=== PATIENT | female | born 1935 | race Caucasian/White ===

== ENCOUNTER 2017-10-13 17:42 | Inpatient (IN) ==
--- NOTE | 2017-10-13 18:03 | Emergency Department Note ---
Disposition Clinical Impression: Junctional bradycardia, Leg edema CHF (congestive heart failure) Qualifiers: Heart failure type: unspecified Heart failure chronicity: acute Qualified Code( s): I50.9 - Heart failure, unspecified Disposition: Admitted As Inpatient Condition: Fair Forms: ED Satisfaction Letter Time of Disposition: 20:11 SOB HPI - General Chief Complaint: ED Shortness of Breath/Dyspnea Stated Complaint: Fluid retention from Dr. Diamond Time Seen by Provider: 10/13/17 17:59 Source: patient Mode of arrival: ambulatory Limitations: no limitations Nursing Notes Reviewed: Yes Vital Signs Reviewed: Yes - History of Present Illness 1-year-old comes in with increasing shortness of breath and was seen by cardiology today patient had a BMP done with 875 level. They report a chest x- ray was done with congestive heart failure. Pt Subjective Complaint: shortness of breath Onset (ago): day(s) Severity: moderate Improves with: nothing Known history of: congestive heart failure Treatment prior to arrival: none Cough present: No - Related Data Home Medications Medication Instructions Recorded Confirmed Acetaminophen [Tylenol] 650 mg PO Q4HR PRN 10/13/17 10/13/17 Baclofen [Lioresal] 5 mg PO TID 10/13/17 10/13/17 Calcium Carbonate [Calcium] 600 mg PO BID 10/13/17 10/13/17 Cetirizine HCl [All Day Allergy] 10 mg PO DAILY 10/13/17 10/13/17 Cholecalciferol (D-3) [Vitamin D] 1,000 mg PO DAILY 10/13/17 10/13/17 Diltiazem CD (24hr) [Cardizem CD] 240 mg PO DAILY 10/13/17 10/13/17 Esomeprazole Magnesium [Nexium] 40 mg PO DAILY 10/13/17 10/13/17 FLUoxetine HCl [Prozac] 40 mg PO DAILY 10/13/17 10/13/17 Furosemide [Lasix] 40 mg PO BID 10/13/17 10/13/17 Gabapentin [Neurontin] 300 mg PO TID 10/13/17 10/13/17 GlipiZIDE XL (24 HR) [Glucotrol XL] 2.5 mg PO DAILY 10/13/17 10/13/17 Lisinopril [Zestril] 40 mg PO DAILY 10/13/17 10/13/17 Magnesium Oxide [Magnesium] 400 mg PO DAILY 10/13/17 10/13/17 Multivitamin [One Daily Essential] 1 tab PO DAILY 10/13/17 10/13/17 Potassium Chloride [Klor-Con 10] 10 meq PO BID 10/13/17 10/13/17 Pramipexole Di-HCl [Pramipexole 0.5 mg PO HS 10/13/17 10/13/17 Dihydrochloride] Pravastatin Sodium [Pravachol] 40 mg PO HS 10/13/17 10/13/17 Rivaroxaban [Xarelto] 15 mg PO DAILY 10/13/17 10/13/17 Sitagliptin Phosphate [Januvia] 50 mg PO DAILY 10/13/17 10/13/17 Allergies Allergy/AdvReac Type Severity Reaction Status Date / Time adhesive tape Allergy Rash Verified 10/13/17 19:51 Sulfa (Sulfonamide Allergy Rash Verified 10/13/17 19:51 Antibiotics) All systems ED: reviewed and negative except as stated. Constitutional: Denies: fever, chills, weakness, weight change Eyes: Denies: eye pain, eye discharge, vision change ENT ED: Denies: ear pain, throat pain, dental pain, hearing loss, epistaxis, congestion, dysphagia Cardiovascular: Reports: edema. Denies: chest pain, palpitations, dyspnea on exertion, syncope Respiratory: Denies: cough, dyspnea, wheezes, hemoptysis, stridor Gastrointestinal: Denies: abdominal pain, nausea, vomiting, diarrhea, constipation, hematemesis, melena, hematochezia Genitourinary: Denies: dysuria, frequency, hematuria, discharge Musculoskeletal: Denies: back pain, neck pain, arthralgia, myalgia Integumentary: Denies: rash, abrasion, lesions Neurological: Denies: headache, weakness, numbness, paresthesias, confusion, abnormal gait, vertigo Psychiatric: Denies: anxiety, depression, suicidal thoughts, homicidal thoughts , auditory hallucinations, visual hallucinations Endocrine: Denies: fatigue Hematological/Lymphatic: Denies: easy bleeding, easy bruising Allergic/Immunologic: Denies: facial swelling, urticaria Past Medical History - Past Medical History Medical history: Reports: non-contributory Psychiatric history: Reports: no psych history - Social History Smoking Status: Never smoker Smokeless Tobacco Status: No Alcohol use: Reports: none Drug use: Reports: none Physical Exam - General Limitations: no limitations General appearance: alert, in no apparent distress - Head Head exam: atraumatic, normocephalic, normal inspection - Eye Eye exam: Present: normal appearance, PERRL, EOMI - ENT ENT exam: normal exam, normal oropharynx, mucous membranes moist - Neck Neck exam: Present: normal inspection, full ROM, trachea midline - Chest Chest inspection: Present: normal inspection, symmetric chest wall rise - Respiratory Respiratory exam: Present: other (Rales) - Cardiovascular Cardiovascular exam: Present: regular rate, normal rhythm, normal heart sounds - Abdominal Exam Abdominal exam: Present: soft, Non-Tender. Absent: tenderness, distention, guarding, rebound, rigidity - Expanded Lower Extremity Exam Neurovascular/Tendon exam: Absent: motor deficit, sensory deficit, tendon deficit - Back Exam Back exam: Present: normal inspection, full ROM. Absent: tenderness - Neurological Exam Neurological exam: Present: alert, oriented X3 - Psychiatric Psychiatric exam: Present: normal affect, normal mood - Skin Skin exam: Present: warm, dry, intact, normal color Course - Reevaluation(s) Time: 20:10 - Consultations Consultation #1: Discussed with Gregory Coello cardiology he will see the patient in consult. Time: 20:10 Consultation #2: Discussed with , he will admit. Time: 20:10 Vital Signs Temperature 98.0 F 10/13/17 17:56 Pulse Rate 49 10/13/17 17:56 Respiratory Rate 18 10/13/17 17:56 Blood Pressure 134/46 10/13/17 17:56 O2 Sat by Pulse Oximetry 94 10/13/17 17:56 Temperature 98.0 F 10/13/17 17:56 Pulse Rate 48 10/13/17 19:49 Respiratory Rate 16 10/13/17 19:49 Blood Pressure 124/63 10/13/17 19:49 O2 Sat by Pulse Oximetry 93 10/13/17 19:49 Oxygen Delivery Oxygen Delivery Room Air Shortness of Breath/Dyspnea - Lab Data Result diagrams: 10/13/17 18:30 10/13/17 18:30 Lab Results 10/13/17 10/13/17 10/13/17 Range/Units 18:30 18:30 18:30 WBC 8.9 (4.3-11.1) K/mcL RBC 3.19 L (3.82-4.97) M/mcL Hgb 10.6 L (11.5-15.4) g/dL Hct 32.8 L (35.3-44.9) % MCV 102.8 H (83.0-100.0) fL MCH 33.2 (28.0-33.3) pg MCHC 32.3 (31.6-35.5) g/dL RDW 12.8 (11.5-14.5) % Plt Count 275 (140-400) K/mcL MPV 9.3 L (9.4-12.4) fL Immature Gran % 0.3 (0-4) % Seg Neutrophils % 65.7 % Lymphocytes % 18.1 % Monocytes % 8.7 % Eosinophils % 6.4 % Basophils % 0.8 % Neutrophils # 5.9 (1.6-8.9) K/mcL Lymphocytes # 1.6 (0.6-4.6) K/mcL Monocytes # 0.8 (0.0-1.3) K/mcL Eosinophils # 0.6 (0.0-0.6) K/mcL Basophils # 0.1 (0.0-0.2) K/mcL Sodium 136 (136-145) mEq/L Potassium 5.3 H (3.5-5.1) mEq/L Chloride 100 (98-107) mEq/L Carbon Dioxide 27 (23-29) mEq/L BUN 37 H (8-23) mg/dL Creatinine 1.91 H (0.60-1.20) mg/dL Est GFR ( Amer) 31 L (> 60) Est GFR (Non-Af Amer) 25 L (> 60) BUN/Creatinine Ratio 19 (6-26) Glucose 160 H (70-105) mg/dL Calculated Osmolality 294 (280-300) Lactic Acid (0.5-2.2) mmol/L Calcium 9.4 (8.6-10.3) mg/dL Troponin I 0.05 H* (< 0.04) ng/mL B-Natriuretic Peptide 659 H (Less than 100) pg/mL 10/13/17 Range/Units 18:50 WBC (4.3-11.1) K/mcL RBC (3.82-4.97) M/mcL Hgb (11.5-15.4) g/dL Hct (35.3-44.9) % MCV (83.0-100.0) fL MCH (28.0-33.3) pg MCHC (31.6-35.5) g/dL RDW (11.5-14.5) % Plt Count (140-400) K/mcL MPV (9.4-12.4) fL Immature Gran % (0-4) % Seg Neutrophils % % Lymphocytes % % Monocytes % % Eosinophils % % Basophils % % Neutrophils # (1.6-8.9) K/mcL Lymphocytes # (0.6-4.6) K/mcL Monocytes # (0.0-1.3) K/mcL Eosinophils # (0.0-0.6) K/mcL Basophils # (0.0-0.2) K/mcL Sodium (136-145) mEq/L Potassium (3.5-5.1) mEq/L Chloride (98-107) mEq/L Carbon Dioxide (23-29) mEq/L BUN (8-23) mg/dL Creatinine (0.60-1.20) mg/dL Est GFR ( Amer) (> 60) Est GFR (Non-Af Amer) (> 60) BUN/Creatinine Ratio (6-26) Glucose (70-105) mg/dL Calculated Osmolality (280-300) Lactic Acid 2.3 H (0.5-2.2) mmol/L Calcium (8.6-10.3) mg/dL Troponin I (< 0.04) ng/mL B-Natriuretic Peptide (Less than 100) pg/mL - EKG Data EKG attestation: Yes I reviewed and interpreted this EKG. EKG results narrative: Junctional bradycardia Rate: Reports: bradycardia Interpretation: Reports: other (Junctional bradycardia)
[2017-10-13 18:42] LABS: Basophils # 0.1 K/mcL (0.0-0.2); Basophils % 0.8 %; Eosinophils # 0.6 K/mcL (0.0-0.6); Eosinophils % 6.4 %; Hematocrit 32.8 % (35.3-44.9); Hemoglobin 10.6 g/dL (11.5-15.4); Immature Granulocytes % 0.3 % (0-4); Lymphocytes # 1.6 K/mcL (0.6-4.6); Lymphocytes % 18.1 %; Mean Corpuscular HGB Conc 32.3 g/dL (31.6-35.5); Mean Corpuscular Hemoglobin 33.2 pg (28.0-33.3); Mean Corpuscular Volume 102.8 fL (83.0-100.0); Mean Platelet Volume 9.3 fL (9.4-12.4); Monocytes # 0.8 K/mcL (0.0-1.3); Monocytes % 8.7 %; Neutrophils # 5.9 K/mcL (1.6-8.9); Platelet Count 275 K/mcL (140-400); Red Blood Count 3.19 M/mcL (3.82-4.97); Red Cell Distribution Width 12.8 % (11.5-14.5); Segmented Neutrophils % 65.7 %
[2017-10-13 19:09] LABS: Calcium 9.4 mg/dL (8.6-10.3); Potassium 5.3 mEq/L (3.5-5.1); Troponin I 0.05 ng/mL (< 0.04)
[2017-10-13] MEDS ORDERED: Furosemide 40 MG/4 ML VIAL IVP ONE (19:36)
[2017-10-13] MEDS ORDERED: Naloxone 0.4 MG/ML INJ IVP PRN (20:53)
[2017-10-13] MEDS ORDERED: Gabapentin 300 MG CAPSULE PO SCH (21:00)
--- NOTE | 2017-10-13 22:11 | Event Note ---
Date of Encounter: 10/14/17 Time of Encounter: 22:11 I examined this patient on 10/13/2017 independently as well as with the residents. Please see history and physical.
[2017-10-13] MEDS ORDERED: Furosemide 40 MG/4 ML VIAL IVP SCH (23:00)
[2017-10-13] MEDS: Baclofen 10 MG TABLET PO SCH (23:10)
--- NOTE | 2017-10-13 23:15 | Internal Med History&Physical ---
<Abraham Martinez - Last Filed: 10/13/17 23:41> Date of Encounter: 10/13/17 Time of Encounter: 21:00 Internal Medicine - H&P: HPI Chief complaint: SOB, bilateral leg swelling Admitted From: Emergency Dept Plans for Post Hospital Care: Home History of present illness: Ms. Moncada is a 81 year old female with PMHx Atrial fibrillation on Xeralto, hypertension, diabetes, neuropathy presents with worsening shortness of breath and bilateral lower extremity edema. Her PCP recently increased her Lasix from 40mg to 80mg due to worsening leg swelling 2 weeks ago. She reports that the increased dose has not helped with her water retention. Today, she went to outpatient cardiology and EKG demonstrated junctional bradycardia in the setting of newly diagnosed CHF. She was advised to come to the emergency room for further work-up and management. The patient reports that she has gained 20lbs over the last 6 weeks. She also has worsening cough with white sputum. Denies chest pain, f/c/n/v, abdominal pain, diarrhea, or constipation. Denies smoking, alcohol, or illicit drug use. She denies history of admission for same issues. She lives by herself and reports missing meals several times a week. No further acute complaints. Past Med Surg Social Fam HX - Past Medical History Medical history: non-contributory Psychiatric history: no psych history - Social History Smoking Status: Never smoker Smokeless Tobacco Status: No Alcohol use: none Drug use: none Internal Medicine - H&P: Meds Acetaminophen [Tylenol] 650 mg PO Q4HR PRN 10/13/17 [History] Baclofen [Lioresal] 5 mg PO TID 10/13/17 [History] Calcium Carbonate [Calcium] 600 mg PO BID 10/13/17 [History] Cetirizine HCl [All Day Allergy] 10 mg PO DAILY 10/13/17 [History] Cholecalciferol (D-3) [Vitamin D] 1,000 mg PO DAILY 10/13/17 [History] Diltiazem CD (24hr) [Cardizem CD] 240 mg PO DAILY 10/13/17 [History] Esomeprazole Magnesium [Nexium] 40 mg PO DAILY 10/13/17 [History] FLUoxetine HCl [Prozac] 40 mg PO DAILY 10/13/17 [History] Furosemide [Lasix] 40 mg PO BID 10/13/17 [History] Gabapentin [Neurontin] 300 mg PO TID 10/13/17 [History] GlipiZIDE XL (24 HR) [Glucotrol XL] 2.5 mg PO DAILY 10/13/17 [History] Lisinopril [Zestril] 40 mg PO DAILY 10/13/17 [History] Magnesium Oxide [Magnesium] 400 mg PO DAILY 10/13/17 [History] Multivitamin [One Daily Essential] 1 tab PO DAILY 10/13/17 [History] Potassium Chloride [Klor-Con 10] 10 meq PO BID 10/13/17 [History] Pramipexole Di-HCl [Pramipexole Dihydrochloride] 0.5 mg PO HS 10/13/17 [History] Pravastatin Sodium [Pravachol] 40 mg PO HS 10/13/17 [History] Rivaroxaban [Xarelto] 15 mg PO DAILY 10/13/17 [History] Sitagliptin Phosphate [Januvia] 50 mg PO DAILY 10/13/17 [History] 3 Allergy/AdvReac Type Severity Reaction Status Date / Time adhesive tape Allergy Rash Verified 10/13/17 19:51 Sulfa (Sulfonamide Allergy Rash Verified 10/13/17 19:51 Antibiotics) All Systems PM: A 10-system review of systems was performed and is negative for pertinent findings except as documented above in the HPI. - Constitutional Constitutional: fatigue, falls, no chills, no fever(s), no night sweats - EENT Eyes: no change in vision, no discharge, no loss of vision, no pain, no photophobia Ears: no ear discharge, no ear pain, no tinnitus Nose, mouth and throat: no dysphagia, no nasal discharge, no neck pain, no sore throat - Cardiovascular Cardiovascular ROS IM: no chest pain, no diaphoresis, no dyspnea, no lightheadedness, no palpitations, no syncope - Respiratory Respiratory: cough, dyspnea, no wheezing, no pain on inspiration, no excessive phlegm production, no pain with cough - Gastrointestinal Gastrointestinal: no abdominal pain, no diarrhea, no hematemesis, no hematochezia, no melena, no nausea, no vomiting - Genitourinary Genitourinary: no change in urinary stream, no dysuria, no flank pain, no hematuria - Musculoskeletal Musculoskeletal ROS IM: no numbness, no tingling Additional comments: worsening bilateral lower extremity swelling with loss of sensation. - Integumentary Integumentary IM: no rash, no unusual bruising - Neurological Neurological ROS: focal weakness, no confusion, no convulsions, no numbness, no tremor(s) Additional comments: loss of sensation in bilateral lower extremities - Endocrine Endocrine IM: no polyuria - Hematologic/Lymphatic Hematologic/Lymphatic: no easy bruising - Constitutional Vitals: Temp Pulse Resp BP Pulse Ox 98.2 F 48 17 128/48 91 10/13/17 21:55 10/13/17 21:55 10/13/17 21:55 10/13/17 21:55 10/13/17 21:55 - Head Head exam: Present: atraumatic, normocephalic - Eye Eye exam: Present: EOMI, conjuntiva pink, sclera anicteric - Neck Neck exam general surgery: Present: supple, trachea midline. Absent: lymphadenopathy - Respiratory Respiratory exam: Present: CTAB. Absent: accessory muscle use, rales, rhonchi, wheezes - Cardiovascular Cardiovascular exam: Present: bradycardia, +S1, +S2. Absent: diastolic murmur, gallop, rubs, systolic murmur - GI/Abdominal GI/Abdominal exam: Present: normal bowel sounds, soft, no peritoneal signs. Absent: distended, tenderness - Extremities Exam Extremities exam: Present: pedal edema, warm. Absent: calf tenderness, cyanotic , tenderness Additional comments: bilateral 3+ pedal edema - Neurological Exam Neurological exam: Present: alert, oriented X3. Absent: pronater drift, facial droop, speech deficit - Skin Skin exam: Present: intact, mottled Internal Med - H&P Results - Labs CBC & Chem 7: 10/13/17 18:30 10/13/17 18:30 - Assessment and plan (1) Leg edema Current Visit: Yes Status: Acute Assessment and plan: likely secondary to CHF exacerbation. Treat per above. (2) Junctional bradycardia Current Visit: Yes Status: Acute Assessment and plan: Pending Cardiology eval and recommendations. (3) Hypertension Current Visit: No Status: Acute Assessment and plan: Stable. Continue with home medications. Qualifiers: Qualified Code(s): I10 - Essential (primary) hypertension (4) History of atrial fibrillation Current Visit: No Status: Acute Assessment and plan: Continue with Xarelto, diltiazem (5) Diabetes Current Visit: No Status: Acute Assessment and plan: Low dose SSI Qualifiers: Qualified Code(s): E11.9 - Type 2 diabetes mellitus without complications (6) DVT prophylaxis Current Visit: Yes Status: Acute Assessment and plan: Patient on Xeralto. (7) Acute exacerbation of CHF (congestive heart failure) Current Visit: Yes Status: Acute Assessment and plan: Patient reports worsening BL lower extremity edema and SOB despite increased dose of lasix. Admit to inpatient with cardiac monitoring CXR shows vascular congestion without acute airspace disease identified. Supplemental oxygen as needed Start IV lasix 40mg BID Monitor I/O closely and daily weight Consult Cardiology, pending echocardiogram Cardiac diet now Daily Magnesium and potassium with AM labs Qualifiers: Qualified Code(s): I50.9 - Heart failure, unspecified - Time Spent With Patient Total time spent is greater than 50% in coordination of care (as documented) at patient's floor/unit and/or counseling patient: Greater than 35 minutes <Dick Conti P - Last Filed: 10/14/17 10:58> Date of Encounter: 10/14/17 Internal Medicine - H&P: HPI History of present illness: Ms. Moncada is a 81 year old female All Systems PM: A 10-system review of systems was performed and is negative for pertinent findings except as documented above in the HPI. - Constitutional Vitals: Temp Pulse Resp BP Pulse Ox 98.9 F 70 17 149/61 90 10/14/17 07:45 10/14/17 07:45 10/14/17 07:45 10/14/17 07:45 10/14/17 07:45 Internal Med - H&P Results - Labs CBC & Chem 7: 10/14/17 00:35 10/14/17 00:35 Labs: Short CBC 10/14/17 Range/Units 00:35 WBC 8.9 (4.3-11.1) K/mcL Hgb 10.4 L (11.5-15.4) g/dL Hct 31.6 L (35.3-44.9) % Plt Count 272 (140-400) K/mcL Neutrophils # 5.0 (1.6-8.9) K/mcL BMP 10/14/17 00:35 Sodium 136 Potassium 5.0 Chloride 100 Carbon Dioxide 29 BUN 40 H Creatinine 1.91 H Glucose 105 Calcium 9.1 Cardiac Enzymes 10/14/17 10/14/17 Range/Units 00:35 06:11 Troponin I 0.05 H* 0.05 H* (< 0.04) ng/mL Liver Function 10/14/17 Range/Units 00:35 Total Bilirubin 0.4 (0.3-1.0) mg/dL AST 19 (13-39) Units/L ALT 12 (7-52) Units/L Alkaline Phosphatase 57 (34-104) Units/L Albumin 3.6 (3.5-5.7) g/dL - Attending Attestation I examined this patient and my medical decision-making was reviewed with the Resident Physician. I agree with the documented findings, disposition and treatment plan as described except to the extent set forth below. I agree with the assessment and plan. - Assessment and plan (1) Leg edema Current Visit: Yes Status: Acute (2) Junctional bradycardia Current Visit: Yes Status: Acute (3) Hypertension Current Visit: No Status: Acute Qualifiers: Qualified Code(s): I10 - Essential (primary) hypertension (4) History of atrial fibrillation Current Visit: No Status: Acute (5) Diabetes Current Visit: No Status: Acute Qualifiers: Qualified Code(s): E11.9 - Type 2 diabetes mellitus without complications (6) DVT prophylaxis Current Visit: Yes Status: Acute (7) Acute exacerbation of CHF (congestive heart failure) Current Visit: Yes Status: Acute Qualifiers: Heart failure type: unspecified Qualified Code(s): I50.9 - Heart failure, unspecified - Time Spent With Patient Total time spent is greater than 50% in coordination of care (as documented) at patient's floor/unit and/or counseling patient:
[2017-10-13] MEDS ORDERED: D5% in Water 1,000 ML IVC PRN (23:21)
[2017-10-13] MEDS ORDERED: Dextrose Gel 15 GM/37.5 ML TUBE PO PRN ×2 (23:21)
[2017-10-13] MEDS ORDERED: *HR* Dextrose 50 % in Water (Syg) 50 ML SYRINGE IVP PRN (23:21)
[2017-10-13] MEDS: Insulin LISPRO 300 UNITS/3 ML VIAL SQ SCH (23:40)
[2017-10-14 01:13] LABS: Basophils # 0.1 K/mcL (0.0-0.2); Basophils % 0.7 %; Eosinophils # 0.7 K/mcL (0.0-0.6); Eosinophils % 7.7 %; Hematocrit 31.6 % (35.3-44.9); Hemoglobin 10.4 g/dL (11.5-15.4); Immature Granulocytes % 0.2 % (0-4); Lymphocytes # 2.3 K/mcL (0.6-4.6); Lymphocytes % 25.5 %; Mean Corpuscular HGB Conc 32.9 g/dL (31.6-35.5); Mean Corpuscular Hemoglobin 33.9 pg (28.0-33.3); Mean Corpuscular Volume 102.9 fL (83.0-100.0); Mean Platelet Volume 9.5 fL (9.4-12.4); Monocytes # 0.9 K/mcL (0.0-1.3); Monocytes % 9.8 %; Platelet Count 272 K/mcL (140-400); Red Blood Count 3.07 M/mcL (3.82-4.97); Red Cell Distribution Width 12.9 % (11.5-14.5); Segmented Neutrophils % 56.1 %
[2017-10-14 01:31] LABS: Albumin 3.6 g/dL (3.5-5.7); Albumin/Globulin Ratio 1.6 (1.1-2.2); Bilirubin,Total 0.4 mg/dL (0.3-1.0); Calcium 9.1 mg/dL (8.6-10.3); Globulin 2.2 g/dL (2.4-3.5); Magnesium 2.2 mg/dL (1.6-2.6); Phosphorous 4.4 mg/dL (2.7-4.5); Total Protein 5.8 g/dL (6.4-8.9)
[2017-10-14] MEDS: FLUoxetine 20 MG CAPSULE PO SCH (08:53)
[2017-10-14] MEDS: Baclofen 10 MG TABLET PO SCH ×3 (08:53→20:40)
[2017-10-14] MEDS: Magnesium Oxide 400 MG TABLET PO SCH (08:53)
[2017-10-14] MEDS: Lisinopril 20 MG TABLET PO SCH (08:53)
[2017-10-14] MEDS: Gabapentin 100 MG CAPSULE PO SCH ×3 (08:53→20:40)
[2017-10-14] MEDS: *HR* Rivaroxaban 15 MG TABLET PO SCH (08:54)
[2017-10-14] MEDS: Cholecalciferol (D-3) 1,000 UNIT TABLET PO SCH (08:54)
[2017-10-14] MEDS: Furosemide 40 MG/4 ML VIAL IVP SCH ×2 (08:54→18:51)
[2017-10-14] MEDS: Loratadine 10 MG TABLET PO SCH (08:54)
[2017-10-14] MEDS: Multivit/Ca/Min/Fe/FA 1 TAB TABLET PO SCH (08:54)
[2017-10-14] MEDS: Insulin LISPRO 300 UNITS/3 ML VIAL SQ SCH ×4 (08:55→20:41)
[2017-10-14] MEDS ORDERED: Diltiazem CD (24hr) 240 MG CAPSULE PO SCH (09:00)
--- NOTE | 2017-10-14 09:19 | Cardiology Consult Note ---
Date of Encounter: 10/14/17 Time of Encounter: 09:14 Assessment and Plan (1) Acute exacerbation of CHF (congestive heart failure) Current Visit: Yes Status: Acute Acute CHF exacerbation. 20lb weight gain in past 6 weeks, worsening dyspnea and LE edema. Fluid overload on exam. CXR vascular congestion, BNP 793. TTE to determine type of CHF--systolic vs diastolic. Last TTE in 2013 showed preserved EF with moderate diastolic dysfunction. Agree with IV lasix 40mg BID. Monitor renal function closely. Recommend strict I/Os, Na and fluid restriction, daily weights. CHF teaching discussed. Pt admits to excess fluid intake. Continue to follow. Qualifiers: Heart failure type: unspecified Qualified Code(s): I50.9 - Heart failure, unspecified (2) PAF (paroxysmal atrial fibrillation) Current Visit: Yes Status: Acute Known hx of PAF, anticoagulated on Xarelto, renal dosing 15mg daily. Junctional bradycardia in office yesterday. AVG HR overnight 53, A-Fib. Pt is on Cardizem CD 240mg daily. Will decrease to 120mg daily. Historically unable to tolerate beta blockers due to causing significant bradycardia. Continue to monitor. (3) Elevated troponin Current Visit: Yes Status: Acute Troponins flat and adynamic--0.05 x 3 in setting of CHF exacerbation. Suspect demand ischemia, nondiagnostic for ACS. Discussion w patient/family: The assessment and plan as outlined above was discussed with the patient and/or family members who expressed understanding and agreement. All questions were answered. Thank you for involving us in the care of your patient. Please call with any questions. I will discuss all the above with Dr. Duran and make changes as necessary. History of Present Illness Consult date: 10/14/17 Consult reason: CHF Chief complaint: dyspnea, LE edema History of present illness: Ms. Moncada is a 81 year old female with PMH of PAF anticoagulated on Xarelto, HTN, HLD, DMII, CKD stage 3 that was seen as outpt in cardiology office yesterday and sent to ED for junctional bradycardia on EKG and CHF symptoms. Pt reports over recent weeks she has noticed worsening dyspnea and LE edema, reports 20lb weight gain in 6 weeks. She denies chest pain, dizziness, lightheadedness. BNP 793, CXR with vascular congestion. Cardiology consulted for further recommendations. Troponins 0.05 x 3. Prior CV testing: [facility] NUCLEAR STRESS TEST 10/06/13. Perfusion imaging was negative for ischemia or infarct. Gated EF = 73%. There is no evidence of TID. ECHO 05/22/14. Normal LV systolic function, LVEF 60-65%. Moderate left ventricular diastolic dysfunction. Normal right ventricular structure and function. Mildly dilated left atrium. Mild-moderate mitral regurgitation. No evidence of pulmonary hypertension. HOLTER MONITOR 06/09/14. Baseline rhythm normal sinus. Several episodes of atrial fibrillation/ flutter with RVR. Frequent PVCs and couplets. Two three beat runs NSVT. Past Med Surg Social Fam HX - Past Medical History Medical history: atrial fibrillation, diabetes, hyperlipidemia, hypertension Psychiatric history: no psych history - Social History Smoking Status: Never smoker Smokeless Tobacco Status: No Alcohol use: none Drug use: none Medications and Allergies Acetaminophen [Tylenol] 650 mg PO Q4HR PRN 10/13/17 [History] Baclofen [Lioresal] 5 mg PO TID 10/13/17 [History] Calcium Carbonate [Calcium] 600 mg PO BID 10/13/17 [History] Cetirizine HCl [All Day Allergy] 10 mg PO DAILY 10/13/17 [History] Cholecalciferol (D-3) [Vitamin D] 1,000 mg PO DAILY 10/13/17 [History] Diltiazem CD (24hr) [Cardizem CD] 240 mg PO DAILY 10/13/17 [History] Esomeprazole Magnesium [Nexium] 40 mg PO DAILY 10/13/17 [History] FLUoxetine HCl [Prozac] 40 mg PO DAILY 10/13/17 [History] Furosemide [Lasix] 40 mg PO BID 10/13/17 [History] Gabapentin [Neurontin] 300 mg PO TID 10/13/17 [History] GlipiZIDE XL (24 HR) [Glucotrol XL] 2.5 mg PO DAILY 10/13/17 [History] Lisinopril [Zestril] 40 mg PO DAILY 10/13/17 [History] Magnesium Oxide [Magnesium] 400 mg PO DAILY 10/13/17 [History] Multivitamin [One Daily Essential] 1 tab PO DAILY 10/13/17 [History] Potassium Chloride [Klor-Con 10] 10 meq PO BID 10/13/17 [History] Pramipexole Di-HCl [Pramipexole Dihydrochloride] 0.5 mg PO HS 10/13/17 [History] Pravastatin Sodium [Pravachol] 40 mg PO HS 10/13/17 [History] Rivaroxaban [Xarelto] 15 mg PO DAILY 10/13/17 [History] Sitagliptin Phosphate [Januvia] 50 mg PO DAILY 10/13/17 [History] 3 Allergy/AdvReac Type Severity Reaction Status Date / Time adhesive tape Allergy Rash Verified 10/13/17 19:51 Sulfa (Sulfonamide Allergy Rash Verified 10/13/17 19:51 Antibiotics) All Systems Review: The remainder of the systems were reviewed and are negative - Cardiovascular Cardiovascular: as per HPI, dyspnea at rest, dyspnea on exertion, leg edema - Respiratory Respiratory: dyspnea Physical Examination Vital Signs, Last 4 Hours Temp Pulse Resp BP Pulse Ox 10/14/17 07:45 98.9 F 70 17 149/61 90 Vital Signs Temp Pulse Resp BP Pulse Ox 10/14/17 07:45 98.9 F 70 17 149/61 90 10/14/17 03:50 97.9 F 52 17 139/47 90 10/13/17 23:43 98.1 F 50 16 121/51 92 10/13/17 21:55 98.2 F 48 17 128/48 91 10/13/17 21:54 98.2 F 48 17 128/48 91 10/13/17 20:38 49 16 139/46 93 10/13/17 19:49 48 16 124/63 93 10/13/17 19:09 47 18 125/53 93 10/13/17 17:56 98.0 F 49 18 134/46 94 Intake and Output 10/13/17 10/14/17 10/14/17 23:59 07:59 15:59 Intake Total 260 / 260 Output Total 400 / 400 750 / 750 Balance -400 / -400 -750 / -750 260 / 260 Intake: Oral 260 / 260 Output: Urine 400 / 400 750 / 750 Other: Meal Breakfast Percent of Meal Consumed 75% # Voids 1 Weight 78.834 kg 77.3 kg Blood Glucose* 130 120 Patient Weight 10/14/17 23:59 Weight 77.3 kg General: Conversant, No Apparent Distress HEENT: Atraumatic, Normocephaly, Mucus Membranes Moist Neck: No JVD, Normal carotid pulses Cardiac: Other (irregularly irregular) Lungs: Other (diminished) Neuro: Alert and responsive, No focal deficits noted Abdomen: Soft, Non-Tender Skin: No rashes noted on visualized skin Musculoskeletal: No Chest Wall Tenderness Extremities: No Clubbing, No Cyanosis, No Edema, Normal Pulses, Other (1+ BLE edema ) Results 10/14/17 00:35 10/14/17 00:35 Lab Results 10/14/17 10/14/17 10/14/17 00:35 00:35 00:35 WBC 8.9 Hgb 10.4 L Hct 31.6 L Plt Count 272 APTT 32.5 Sodium Potassium Chloride Carbon Dioxide BUN Creatinine Glucose Calcium Magnesium Total Bilirubin AST ALT Alkaline Phosphatase Troponin I 0.05 H* B-Natriuretic Peptide 10/14/17 10/14/17 10/14/17 00:35 00:35 06:11 WBC Hgb Hct Plt Count APTT Sodium 136 Potassium 5.0 Chloride 100 Carbon Dioxide 29 BUN 40 H Creatinine 1.91 H Glucose 105 Calcium 9.1 Magnesium 2.2 Total Bilirubin 0.4 AST 19 ALT 12 Alkaline Phosphatase 57 Troponin I 0.05 H* B-Natriuretic Peptide 793 H Short CBC 10/14/17 10/13/17 Range/Units 00:35 18:30 WBC 8.9 8.9 (4.3-11.1) K/mcL Hgb 10.4 L 10.6 L (11.5-15.4) g/dL Hct 31.6 L 32.8 L (35.3-44.9) % Plt Count 272 275 (140-400) K/mcL Neutrophils # 5.0 5.9 (1.6-8.9) K/mcL BMP 10/14/17 10/13/17 Range/Units 00:35 18:30 Sodium 136 136 (136-145) mEq/L Potassium 5.0 5.3 H (3.5-5.1) mEq/L Chloride 100 100 (98-107) mEq/L Carbon Dioxide 29 27 (23-29) mEq/L BUN 40 H 37 H (8-23) mg/dL Creatinine 1.91 H 1.91 H (0.60-1.20) mg/dL Glucose 105 160 H (70-105) mg/dL Calcium 9.1 9.4 (8.6-10.3) mg/dL Cardiac Enzymes 10/14/17 10/14/17 10/13/17 Range/Units 06:11 00:35 18:30 Troponin I 0.05 H* 0.05 H* 0.05 H* (< 0.04) ng/mL Liver Function 10/14/17 Range/Units 00:35 Total Bilirubin 0.4 (0.3-1.0) mg/dL AST 19 (13-39) Units/L ALT 12 (7-52) Units/L Alkaline Phosphatase 57 (34-104) Units/L Albumin 3.6 (3.5-5.7) g/dL Impressions Chest X-Ray 10/13/17 17:59 IMPRESSION: Vascular congestion without acute airspace disease identified. Cardiac silhouette enlargement is again demonstrated. D/ / Alan Gordon / Alan Gordon Interpreting Provider: Alan Gordon Active Medications Atorvastatin Calcium (Lipitor) 10 mg PO HS DILEEP Stop: 04/15/18 21:01 Baclofen (Lioresal) 5 mg PO TID DILEEP Stop: 04/14/18 21:01 Last Admin: 10/14/17 08:53 Dose: 5 mg Calcium Carbonate (Tums) 500 mg PO BID DILEEP Stop: 04/15/18 09:01 Last Admin: 10/14/17 08:54 Dose: 500 mg Dextrose/Water (Dextrose 50% (Syg)) 25 ml IVP AD PRN PRN Reason: Hypoglycemia Stop: 04/14/18 23:22 Diltiazem HCl (Cardizem Cd) 240 mg PO DAILY DILEEP Stop: 04/15/18 09:01 Last Admin: 10/14/17 08:53 Dose: 240 mg Fluoxetine HCl (Prozac) 40 mg PO DAILY DILEEP Stop: 04/15/18 09:01 Last Admin: 10/14/17 08:53 Dose: 40 mg Furosemide (Lasix) 40 mg IVP BIDDIURETIC DILEEP Stop: 04/15/18 08:01 Last Admin: 10/14/17 08:54 Dose: 40 mg Gabapentin (Neurontin) 200 mg PO TID DILEEP Stop: 04/15/18 09:01 Last Admin: 10/14/17 08:53 Dose: 200 mg Glucagon (Glucagen) 1 mg IM ONCE PRN PRN Reason: Hypoglycemia Stop: 04/14/18 23:22 Glucose (Gluctose) 15 gm PO ONCE PRN PRN Reason: Hypoglycemia Stop: 04/14/18 23:22 Glucose (Gluctose) 30 gm PO ONCE PRN PRN Reason: Hypoglycemia Stop: 04/14/18 23:22 Dextrose (Dextrose 5%) 1,000 mls @ 100 mls/hr IVC .Q10H PRN PRN Reason: HYPOGLYCEMIA Stop: 04/14/18 23:22 Insulin Human Lispro (Humalog) 0 units SQ TIDAC [facility] PRN Reason: Protocol Stop: 04/15/18 07:31 Last Admin: 10/14/17 08:55 Dose: Not Given Insulin Human Lispro (Humalog) 0 units SQ HS [facility] PRN Reason: Protocol Stop: 04/14/18 23:31 Last Admin: 10/13/17 23:40 Dose: Not Given Lisinopril (Zestril) 40 mg PO DAILY [facility] Stop: 04/15/18 09:01 Last Admin: 10/14/17 08:53 Dose: 40 mg Loratadine (Claritin) 10 mg PO DAILY DILEEP Stop: 04/15/18 09:01 Last Admin: 10/14/17 08:54 Dose: 10 mg Magnesium Oxide (Mag-Ox) 400 mg PO DAILY [facility] PRN Reason: Protocol Stop: 04/15/18 09:01 Last Admin: 10/14/17 08:53 Dose: 400 mg Multivitamins/Calcium (Thera M Plus) 1 tab PO DAILY [facility] Stop: 04/15/18 09:01 Last Admin: 10/14/17 08:54 Dose: 1 tab Naloxone HCl (Narcan) 0.4 mg IVP Q2MIN PRN PRN Reason: SEE COMMENTS Stop: 04/14/18 20:54 Omeprazole (Prilosec) 20 mg PO 0630 [facility] Stop: 04/15/18 06:31 Last Admin: 10/14/17 06:18 Dose: 20 mg Potassium Chloride (Potassium Chloride) 10 meq PO BID DILEEP Stop: 04/14/18 21:01 Last Admin: 10/13/17 23:33 Dose: Not Given Pramipexole Dihydrochloride (Mirapex) 0.5 mg PO HS [facility] Stop: 04/14/18 21:01 Last Admin: 10/13/17 23:10 Dose: 0.5 mg Rivaroxaban (Xarelto) 15 mg PO DAILY [facility] Stop: 04/15/18 09:01 Last Admin: 10/14/17 08:54 Dose: 15 mg Vitamin D (Vitamin D) 1,000 unit PO DAILY [facility] Stop: 04/15/18 09:01 Last Admin: 10/14/17 08:54 Dose: 1,000 unit - Imaging and Cardiology Stress Test: report reviewed Echo: report reviewed Holter: report reviewed - EKG Interpretation EKG results cardiology: personally reviewed (Initial EKG junctional bradycardia , HR 49. Subsequent EKG A-Fib HR 61) Consult Discharge Plan - Plan Referrals: Oniel Irwin MD [Primary Care Provider] -
--- NOTE | 2017-10-14 20:45 | Internal Med Progress Note ---
Date of Encounter: 10/14/17 Time of Encounter: 15:17 - Assessment and plan (1) Leg edema Current Visit: Yes Status: Acute Assessment and plan: Likely secondary to acute CHF exacerbation, which is new diagnosis. Subjectively "greatly improved" per patient. Treat CHF exacerbation as per below. (2) Acute exacerbation of CHF (congestive heart failure) Current Visit: Yes Status: Acute Assessment and plan: Improving. Continue telemetry. Continue IV lasix BID. Monitor renal function closely due to history of CKD. Continue fluid restriction 2L/day. Cardiology consulted; appreciate input. Continue supplemental oxygen PRN. Monitor strict I&Os and daily weights. ECHO pending. Continue home lisinopril; consider adding beta loan prior to discharge if BP can tolerated. Recheck BMP in AM. Qualifiers: Heart failure type: unspecified Qualified Code(s): I50.9 - Heart failure, unspecified (3) Junctional bradycardia Current Visit: Yes Status: Acute Assessment and plan: No further episodes of bradycardia since admission. Cardiology consulted; appreciate input. Will await their recommendations. (4) Hypertension Current Visit: Yes Status: Chronic Assessment and plan: Continue home medications. Qualifiers: Qualified Code(s): I10 - Essential (primary) hypertension (5) History of atrial fibrillation Current Visit: Yes Status: Chronic Assessment and plan: Cardiology consulted; appreciate input. Continue diltiazem and xarelto. (6) Diabetes Current Visit: No Status: Acute Assessment and plan: Continue accuchecks and low dose SSI QID AC/HS. Qualifiers: Qualified Code(s): E11.9 - Type 2 diabetes mellitus without complications (7) Chronic kidney disease (CKD) Current Visit: Yes Status: Chronic Assessment and plan: Creatinine high but holding stable. Monitor closely with diuresis. Recheck BMP in AM. Qualifiers: Chronic kidney disease stage: unspecified stage Qualified Code(s): N18.9 - Chronic kidney disease, unspecified (8) DVT prophylaxis Current Visit: Yes Status: Acute Assessment and plan: Continue home xarelto. - Time Spent With Patient Total time spent is greater than 50% in coordination of care (as documented) at patient's floor/unit and/or counseling patient: 25 - 35 minutes (d) - Subjective Interval history: Patient had no acute events overnight. She states that she is feeling much better this AM. She has had "lots" of urine output. Legs are much less swollen. She denies chest pain, SOB, fever, chills, nausea, or vomiting. She has no complaints at this time. - Constitutional Vitals: Temp Pulse Resp BP Pulse Ox 98.1 F 58 17 107/64 90 10/14/17 19:49 10/14/17 19:49 10/14/17 19:49 10/14/17 19:49 10/14/17 19:49 General appearance: Present: cooperative, A&O X 3, pleasant, no acute distress, answers questions appropriately - Respiratory Respiratory exam: Present: CTAB. Absent: accessory muscle use, rales, rhonchi, wheezes Additional comments: Normal WOB - Cardiovascular Cardiovascular exam: Present: RRR, +S1, +S2. Absent: diastolic murmur, gallop, rubs, systolic murmur Additional comments: 2+ pitting BLE edema - GI/Abdominal GI/Abdominal exam: Present: normal bowel sounds, soft. Absent: distended, hepatomegaly, mass, splenomegaly, tenderness - Psychiatric Psychiatric exam: Present: normal affect, normal mood. Absent: agitated, anxious, depressed - Skin Skin exam: Present: dry, intact, warm. Absent: cyanosis, rash Internal Medicine: Result - Labs CBC & Chem 7: 10/14/17 00:35 10/14/17 00:35 Labs: Short CBC 10/14/17 Range/Units 00:35 WBC 8.9 (4.3-11.1) K/mcL Hgb 10.4 L (11.5-15.4) g/dL Hct 31.6 L (35.3-44.9) % Plt Count 272 (140-400) K/mcL Neutrophils # 5.0 (1.6-8.9) K/mcL BMP 10/14/17 00:35 Sodium 136 Potassium 5.0 Chloride 100 Carbon Dioxide 29 BUN 40 H Creatinine 1.91 H Glucose 105 Calcium 9.1 Cardiac Enzymes 10/14/17 10/14/17 Range/Units 00:35 06:11 Troponin I 0.05 H* 0.05 H* (< 0.04) ng/mL Liver Function 10/14/17 Range/Units 00:35 Total Bilirubin 0.4 (0.3-1.0) mg/dL AST 19 (13-39) Units/L ALT 12 (7-52) Units/L Alkaline Phosphatase 57 (34-104) Units/L Albumin 3.6 (3.5-5.7) g/dL - Impressions Impressions Echocardiogram 10/14/17 23:03 Impressions: LVEF 65%. Normal LV chamber size and function. Mild concentric left ventricular hypertrophy. Indeterminate diastolic function. Normal right ventricular structure and function. Severely dilated left atrium. Severely dilated right atrium. Mild mitral regurgitation. Mild pulmonary hypertension. Left Ventricular Wall Motion: Rest Echo Findings All wall segments showed normal motion. Findings: Study Quality * Technically adequate exam. ECG Findings * Atrial fibrillation. Left Ventricle * LVEF 65%. * Normal LV chamber size and function. * Mild concentric left ventricular hypertrophy. * Indeterminate diastolic function. Right Ventricle * Normal right ventricular structure and function. Left Atrium * Severely dilated left atrium. Right Atrium * Severely dilated right atrium. Aortic Valve * Trileaflet aortic valve with normal function. * No aortic regurgitation. * No aortic stenosis. Mitral Valve * Normal mitral valve structure. * Mild mitral regurgitation. * No mitral stenosis. Tricuspid Valve * Normal tricuspid valve structure and function. * Trace tricuspid regurgitation. * Mild pulmonary hypertension. Pulmonic Valve * Pulmonic valve is not well visualized. * No pulmonic regurgitation. Aorta * Normally sized aortic root. Pericardium * The pericardium appears normal. IVC * Normal IVC dimensions and inspiratory collapse. Pulmonary Artery * Normal visualized portions of the main pulmonary artery. - VTE Contraindication No Overlap Therapy: Admin of oral Factor Xa Inhibitor Consult Discharge Plan - Plan Instructions: Heart Failure (DC), Heart Failure, Cv/Cvn Cv Tsc System Operator (GEN) Referrals: Oniel Irwin MD [Primary Care Provider] - (web request sent on 10/14/17)
[2017-10-15] MEDS: Insulin LISPRO 300 UNITS/3 ML VIAL SQ SCH ×4 (07:45→21:43)
[2017-10-15] MEDS: Baclofen 10 MG TABLET PO SCH ×3 (08:00→21:44)
[2017-10-15] MEDS: Diltiazem CD (24hr) 120 MG CAPSULE PO SCH (08:02)
[2017-10-15] MEDS: *HR* Rivaroxaban 15 MG TABLET PO SCH (08:02)
[2017-10-15] MEDS: Loratadine 10 MG TABLET PO SCH (08:02)
[2017-10-15] MEDS: FLUoxetine 20 MG CAPSULE PO SCH (08:02)
[2017-10-15] MEDS: Magnesium Oxide 400 MG TABLET PO SCH (08:02)
[2017-10-15] MEDS: Cholecalciferol (D-3) 1,000 UNIT TABLET PO SCH (08:02)
[2017-10-15] MEDS: Lisinopril 20 MG TABLET PO SCH (08:02)
[2017-10-15] MEDS: Multivit/Ca/Min/Fe/FA 1 TAB TABLET PO SCH (08:03)
[2017-10-15] MEDS: Gabapentin 100 MG CAPSULE PO SCH ×3 (08:03→21:44)
[2017-10-15] MEDS: Furosemide 40 MG/4 ML VIAL IVP SCH ×2 (08:03→16:53)
--- NOTE | 2017-10-15 09:20 | Cardiology Progress Note ---
Date of Encounter: 10/15/17 Time of Encounter: 09:18 Assessment and Plan (1) Acute exacerbation of CHF (congestive heart failure) Current Visit: Yes Status: Acute Acute diastolic CHF exacerbation. 20lb weight gain in past 6 weeks, worsening dyspnea and LE edema. Fluid overload on exam. CXR vascular congestion, BNP 793. Cumulative I/O -2890mL. TTE--EF 65%. Mild cLVH. Indeterminate diastolic function. Normal right ventricular structure and function. Severely dilated LA and RA. Mild MR. Mild phtn. On IV lasix 40mg BID. Monitor renal function closely. BMP pending for today. Recommend strict I/Os, Na and fluid restriction, daily weights. CHF teaching discussed. Pt admits to excess fluid intake. Recommend at least another 24 hours of IV diuresis, transition to PO Lasix prior to d/c. Cardiology signing off. Reconsult PRN. Will coordinate outpt follow-up in 1-2 weeks. Qualifiers: Heart failure type: unspecified Qualified Code(s): I50.9 - Heart failure, unspecified (2) PAF (paroxysmal atrial fibrillation) Current Visit: Yes Status: Acute Known hx of PAF, anticoagulated on Xarelto, renal dosing 15mg daily. Junctional bradycardia in office. AVG HR overnight 59, A-Fib. Decreased Cardizem CD to 120mg daily. Historically unable to tolerate beta blockers due to causing significant bradycardia. (3) Elevated troponin Current Visit: Yes Status: Acute Troponins flat and adynamic--0.05 x 3 in setting of CHF exacerbation. Suspect demand ischemia, nondiagnostic for ACS. Discussion w patient/family: The assessment and plan as outlined above was discussed with the patient and/or family members who expressed understanding and agreement. All questions were answered. Thank you for involving us in the care of your patient. Please call with any questions. I will discuss all the above with Dr. Duran and make changes as necessary. Subjective Principal diagnosis: CHF Interval history: Pt reports dyspnea and LE edema are improving. Cumulative I/O -2890mL. TTE resulted--EF 65%. Normal LV chamber size and function. Mild concentric left ventricular hypertrophy. Indeterminate diastolic function. Normal right ventricular structure and function. Severely dilated left atrium. Severely dilated right atrium. Mild mitral regurgitation. Mild pulmonary hypertension. Objective Vital Signs, Last 4 Hours Temp Pulse Resp BP Pulse Ox 10/15/17 07:30 97.8 F 56 16 141/56 92 Vital Signs Temp Pulse Resp BP Pulse Ox 10/15/17 07:30 97.8 F 56 16 141/56 92 10/15/17 04:15 98.1 F 76 17 144/53 93 10/14/17 19:49 98.1 F 58 17 107/64 90 10/14/17 16:11 98.0 F 67 16 137/55 90 10/14/17 11:14 98.2 F 70 16 138/67 91 Intake and Output 10/14/17 10/15/17 10/15/17 23:59 07:59 15:59 Output Total 700 / 700 600 / 600 0 / 0 Balance -700 / -700 -600 / -600 0 / 0 Output: Urine 700 / 700 600 / 600 0 / 0 Other: Stool Size Moderate Moderate Stool Consistency formed loose liquid Stool Color Brown Brown # Voids 1 0 # Bowel Movements 0 Weight 77.3 kg Blood Glucose* 230 117 Patient Weight 10/15/17 23:59 Weight 77.3 kg General: Conversant, No Apparent Distress HEENT: Atraumatic, Normocephaly, Mucus Membranes Moist Neck: Normal carotid pulses Cardiac: Other (irregularly irregular) Lungs: Other (diminished) Neuro: Alert and responsive, No focal deficits noted Abdomen: Soft, Non-Tender Skin: No rashes noted on visualized skin Musculoskeletal: No Chest Wall Tenderness Extremities: Other (2+ BLE edema) Results 10/14/17 00:35 10/15/17 08:49 - Imaging and Cardiology Echo: report reviewed - EKG Interpretation EKG results cardiology: other (12 hr tele AVG HR 59, A-Fib/Flutter) - VTE Contraindication No Overlap Therapy: Admin of oral Factor Xa Inhibitor Consult Discharge Plan - Plan Instructions: Heart Failure (DC), Heart Failure, Manager Real Estate (GEN) Referrals: Oniel Irwin MD [Primary Care Provider] - (web request sent on 10/14/17)
[2017-10-15 09:39] LABS: Calcium 9.5 mg/dL (8.6-10.3); Potassium 4.2 mEq/L (3.5-5.1)
[2017-10-15 13:22] LABS: Potassium 4.1 mEq/L (3.5-5.1)
[2017-10-15 13:23] LABS: Calcium 9.2 mg/dL (8.6-10.3)
--- NOTE | 2017-10-15 17:04 | Electrocardiograph Report ---
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
--- NOTE | 2017-10-15 17:05 | Electrocardiograph Report ---
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
--- NOTE | 2017-10-15 17:05 | Electrocardiograph Report ---
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
--- NOTE | 2017-10-15 20:45 | Internal Med Progress Note ---
Date of Encounter: 10/15/17 Time of Encounter: 15:27 - Assessment and plan (1) Leg edema Current Visit: Yes Status: Acute Assessment and plan: Continues to improve. Likely secondary to acute CHF exacerbation, which is new diagnosis. Cardiology consulted; appreciate input. Treat CHF exacerbation as per below. Per cardiology, give 24 more hours of IV diuresis, then discharge home with PO lasix. (2) Acute exacerbation of CHF (congestive heart failure) Current Visit: Yes Status: Acute Assessment and plan: Improving. Continue telemetry. Continue IV lasix BID. Monitor renal function closely due to history of CKD. Continue fluid restriction 2L/day. Start compression bandages on BLE. Elevate legs when sitting or lying down. Up to chair TID. PT/OT consulted. Cardiology consulted; appreciate input. Continue supplemental oxygen PRN. Monitor strict I&Os and daily weights. ECHO showed LVEF 65%, mild cLVH, indeterminate diastolic function, normal right ventricular structure and function, severely dilated LA and RA, and mild MR. Continue home lisinopril; cannot tolerate any beta loan. Recheck BMP in AM. Qualifiers: Heart failure type: unspecified Qualified Code(s): I50.9 - Heart failure, unspecified (3) Junctional bradycardia Current Visit: Yes Status: Acute Assessment and plan: No further episodes of bradycardia since admission. Cardiology consulted; appreciate input. Cardizem decreased to 120 mg QD. Continue telemetry. (4) Hypertension Current Visit: Yes Status: Chronic Assessment and plan: Continue home medications. Qualifiers: Qualified Code(s): I10 - Essential (primary) hypertension (5) History of atrial fibrillation Current Visit: Yes Status: Chronic Assessment and plan: Cardiology consulted; appreciate input. Continue diltiazem at lower dose as per above. Continue xarelto. (6) Diabetes Current Visit: No Status: Acute Assessment and plan: Continue accuchecks and low dose SSI QID AC/HS. Qualifiers: Qualified Code(s): E11.9 - Type 2 diabetes mellitus without complications (7) Chronic kidney disease (CKD) Current Visit: Yes Status: Chronic Assessment and plan: Creatinine high but now starting to trend down. Monitor closely with diuresis. Recheck BMP in AM. Qualifiers: Chronic kidney disease stage: unspecified stage Qualified Code(s): N18.9 - Chronic kidney disease, unspecified (8) DVT prophylaxis Current Visit: Yes Status: Acute Assessment and plan: Continue home xarelto. - Time Spent With Patient Total time spent is greater than 50% in coordination of care (as documented) at patient's floor/unit and/or counseling patient: 25 - 35 minutes - Subjective Interval history: Patient had no acute events overnight. She states that she continues to get better. She continues to have good urine output. Legs are less swollen. She denies chest pain, SOB, fever, chills, nausea, or vomiting. She has no complaints at this time. I counselled her again today for 10 minutes on CHF management, including low sodium and fluid restricted diet, leg elevation, compression stockings, diuresis, and mortality reduction with medication. She seems motivated to manage at home. - Constitutional Vitals: Temp Pulse Resp BP Pulse Ox 97.7 F 75 16 160/68 95 10/15/17 18:24 10/15/17 18:24 10/15/17 18:24 10/15/17 18:24 10/15/17 18:24 General appearance: Present: cooperative, A&O X 3, pleasant, no acute distress, answers questions appropriately - Respiratory Respiratory exam: Present: CTAB. Absent: accessory muscle use, rales, rhonchi, wheezes Additional comments: Normal WOB - Cardiovascular Cardiovascular exam: Present: RRR, +S1, +S2. Absent: diastolic murmur, gallop, rubs, systolic murmur Additional comments: 1+ BLE edema - GI/Abdominal GI/Abdominal exam: Present: normal bowel sounds, soft. Absent: distended, hepatomegaly, mass, splenomegaly, tenderness - Psychiatric Psychiatric exam: Present: normal affect, normal mood. Absent: agitated, anxious, depressed - Skin Skin exam: Present: dry, intact, warm. Absent: cyanosis, rash Internal Medicine: Result - Labs CBC & Chem 7: 10/14/17 00:35 10/15/17 08:49 Labs: BMP 10/15/17 10/15/17 01:12 08:49 Sodium 139 139 Potassium 4.1 4.2 Chloride 101 98 Carbon Dioxide 28 29 BUN 34 H 30 H Creatinine 1.46 H 1.42 H Glucose 100 131 H Calcium 9.2 9.5 - VTE Contraindication No Overlap Therapy: Admin of oral Factor Xa Inhibitor Consult Discharge Plan - Plan Instructions: Heart Failure (DC), Heart Failure, Help Aid (GEN) Referrals: Oniel Irwin MD [Primary Care Provider] - (web request sent on 10/14/17)
[2017-10-16 04:45] LABS: Calcium 8.9 mg/dL (8.6-10.3)
[2017-10-16 06:53] VITALS: BP 146/69
[2017-10-16] MEDS: Insulin LISPRO 300 UNITS/3 ML VIAL SQ SCH (07:30)
[2017-10-16] MEDS: FLUoxetine 20 MG CAPSULE PO SCH (07:36)
[2017-10-16] MEDS: Magnesium Oxide 400 MG TABLET PO SCH (07:36)
[2017-10-16] MEDS: Lisinopril 20 MG TABLET PO SCH (07:36)
[2017-10-16] MEDS: Furosemide 40 MG/4 ML VIAL IVP SCH (07:36)
[2017-10-16] MEDS: *HR* Rivaroxaban 15 MG TABLET PO SCH (07:36)
[2017-10-16] MEDS: Diltiazem CD (24hr) 120 MG CAPSULE PO SCH (07:37)
[2017-10-16] MEDS: Multivit/Ca/Min/Fe/FA 1 TAB TABLET PO SCH (07:37)
[2017-10-16] MEDS: Cholecalciferol (D-3) 1,000 UNIT TABLET PO SCH (07:37)
[2017-10-16] MEDS: Baclofen 10 MG TABLET PO SCH (07:37)
[2017-10-16] MEDS: Loratadine 10 MG TABLET PO SCH (07:37)
[2017-10-16] MEDS: Gabapentin 100 MG CAPSULE PO SCH (07:37)
--- NOTE | 2017-10-16 10:55 | Discharge Summary ---
- NOTES TO OUTPATIENT PROVIDER Notes to Outpatient Provider: Follow up with PCP in 2-3 days after discharge. Recheck BMP at that time to monitor renal function and electrolytes. She will be discharged with 7 days of lasix 40 mg PO BID; please address fluid status at that time and adjust lasix accordingly to an appropriate maintenance dose. Readdress 2L/day fluid restriction, 2 gram/day salt restriction, leg elevation, and compression stockings at that time. Follow up with cardiology in 1-2 weeks. Date of Encounter: 10/16/17 Time of Encounter: 10:53 - Discharge Diagnosis (1) Leg edema Priority: Primary Status: Acute (2) Acute exacerbation of CHF (congestive heart failure) Priority: Secondary Status: Acute Qualifiers: Heart failure type: unspecified Qualified Code(s): I50.9 - Heart failure, unspecified (3) Junctional bradycardia Priority: Secondary Status: Acute (4) Hypertension Priority: Secondary Status: Chronic Qualifiers: Qualified Code(s): I10 - Essential (primary) hypertension (5) History of atrial fibrillation Priority: Secondary Status: Chronic (6) Diabetes Priority: Secondary Status: Acute Qualifiers: Qualified Code(s): E11.9 - Type 2 diabetes mellitus without complications (7) Chronic kidney disease (CKD) Priority: Secondary Status: Chronic Qualifiers: Chronic kidney disease stage: unspecified stage Qualified Code(s): N18.9 - Chronic kidney disease, unspecified (8) DVT prophylaxis Priority: Secondary Status: Acute Hospital course: Ms. Moncada is a 81 year old female admitted for leg edema and junctional bradycardia. She was admitted to general medical floor with telemetry. She was started on lasix 40 mg IV BID, 2L/day fluid restriction, 2g/day salt restriction, leg elevation, and compression wraps for acute exacerbation of congestive hear failure (new diagnosis). Cardiology was consulted. No episodes of bradycardia since admission. Continued on xarelto, and cardiology decreased diltiazem for Afib. ECHO showed LVEF 65%, normal LV size and function , mild concentric LV hypertrophy, normal RV size and function, severely dilated left atrium, severely dilated right atrium, mild mitral regurgitation, and mild pulmonary hypertension. She diruesed well for 2 days with good urine output. Leg edema greatly improved. She states today that she is back to baseline. No SOB throughout admission. She has been educated again today on lasix 40 mg IV BID for 7 days at discharge, 2L/day fluid restriction, 2g/day salt restriction, leg elevation, and compression wraps. She will follow up with PCP in 2-3 days after discharge. BMP can be rechecked at that time, and lasix dose adjusted based on fluid status. She will follow up with cardiology in 1-2 weeks as directed. Patient has met maximum benefit of this hospitalization and will be discharged home in stable condition. Discharge discussed with: patient, nurse, case management, other (Pharmacist) - Time Spent with Patient Total time spent providing and/or coordinating discharge services: Greater than 30 minutes - Discharge Medications Prescriptions: Furosemide [Lasix] 40 mg PO BID 7 Days #14 tablet Home Medications: Acetaminophen [Tylenol] 650 mg PO Q4HR PRN 10/13/17 [History] Baclofen [Lioresal] 5 mg PO TID 10/13/17 [History] Calcium Carbonate [Calcium] 600 mg PO BID 10/13/17 [History] Cetirizine HCl [All Day Allergy] 10 mg PO DAILY 10/13/17 [History] Cholecalciferol (D-3) [Vitamin D] 1,000 mg PO DAILY 10/13/17 [History] Diltiazem CD (24hr) [Cardizem CD] 240 mg PO DAILY 10/13/17 [History] Esomeprazole Magnesium [Nexium] 40 mg PO DAILY 10/13/17 [History] FLUoxetine HCl [Prozac] 40 mg PO DAILY 10/13/17 [History] Gabapentin [Neurontin] 300 mg PO TID 10/13/17 [History] GlipiZIDE XL (24 HR) [Glucotrol XL] 2.5 mg PO DAILY 10/13/17 [History] Lisinopril [Zestril] 40 mg PO DAILY 10/13/17 [History] Magnesium Oxide [Magnesium] 400 mg PO DAILY 10/13/17 [History] Multivitamin [One Daily Essential] 1 tab PO DAILY 10/13/17 [History] Potassium Chloride [Klor-Con 10] 10 meq PO BID 10/13/17 [History] Pramipexole Di-HCl [Pramipexole Dihydrochloride] 0.5 mg PO HS 10/13/17 [History] Pravastatin Sodium [Pravachol] 40 mg PO HS 10/13/17 [History] Rivaroxaban [Xarelto] 15 mg PO DAILY 10/13/17 [History] Sitagliptin Phosphate [Januvia] 50 mg PO DAILY 10/13/17 [History] Furosemide [Lasix] 40 mg PO BID 7 Days #14 tablet 10/16/17 [Rx] Allergies/Adverse Reactions: 3 Allergy/AdvReac Type Severity Reaction Status Date / Time adhesive tape Allergy Rash Verified 10/13/17 19:51 Sulfa (Sulfonamide Allergy Rash Verified 10/13/17 19:51 Antibiotics) Date of admission: 10/13/17 20:53 Primary care physician: Oniel Irwin MD Consults: Cardiology 10/14/17 11:37 Consult to Occupational Therapy [CONS] Routine Comment: Evaluate, develop and implement POC Reason for Consult: evaluation Does patient have active BEDREST order?: No Is patient medically & hemodynamically stable?: Yes Patient assessed for mobility or mobilized this visit?: No Consult to Physical Therapy [CONS] Routine Comment: Evaluate, develop and implement POC Reason for Consult: eval Does patient have active BEDREST order?: No Is patient medically & hemodynamically stable?: Yes Patient assessed for mobility or mobilized this visit?: No Discharging clinician: Rao Bryant Anticipated date of discharge: 10/16/17 - Constitutional Vitals: Temp Pulse Resp BP Pulse Ox 99.2 F 61 16 146/69 94 10/16/17 06:48 10/16/17 06:48 10/16/17 06:48 10/16/17 06:48 10/16/17 06:48 General appearance: Present: cooperative, A&O X 3, pleasant, no acute distress, answers questions appropriately - Respiratory Respiratory exam: Present: CTAB. Absent: accessory muscle use, rales, rhonchi, wheezes Additional comments: Normal WOB - Cardiovascular Cardiovascular exam: Present: RRR, +S1, +S2. Absent: diastolic murmur, gallop, rubs, systolic murmur Additional comments: 1+ BLE edema - GI/Abdominal GI/Abdominal exam: Present: normal bowel sounds, soft. Absent: distended, hepatomegaly, mass, splenomegaly, tenderness - Psychiatric Psychiatric exam: Present: normal affect, normal mood. Absent: agitated, anxious, depressed - Skin Skin exam: Present: dry, intact, warm. Absent: cyanosis, rash - Patient Status Disposition: Home, Self-Care Condition: Good Overall status at discharge: patient is progressing back to baseline - Discharge Instructions Instructions: Heart Failure (DC), Heart Failure, State Editor (GEN) Follow Up With: Oniel Irwin MD [Primary Care Provider] - (web request sent on 10/14/17) Additional Instructions: Follow up with PCP in 2-3 days after discharge. Recheck BMP at that time to monitor renal function and electrolytes. She will be discharged with 7 days of lasix 40 mg PO BID; please address fluid status at that time and adjust lasix accordingly to an appropriate maintenance dose. Readdress 2L/day fluid restriction and 2 gram/day salt restriction at that time. Follow up with cardiology in 1-2 weeks. - Diet and Activity Activity: resume usual activities as tolerated Diet: low fat, low cholesterol, low salt diet (2 gram/day), other (Cardiac Diet , Renal Diet, Fluid Restriction Diet 2L/day) - VTE Contraindication No Overlap Therapy: Admin of oral Factor Xa Inhibitor
== END 2017-10-16 13:13 | disposition home or self-care (01) | DRG 291 ==
LOC: 2ANU 17:42 → EMEROO 17:42 → 2ANU 20:56
PROVIDERS: ADMIT Internal Medicine; ATTEND Internal Medicine